=== PATIENT | male | born 1955 | race African-American/Black ===

== ENCOUNTER 2018-09-05 07:14 | Observation (INO) | payer MEDICAID ==
[2018-09-05] MEDS ORDERED: EPINEPHRINE INJ/PF 1 MG/1 ML AMPULE IM ONE (07:40)
[2018-09-05] MEDS ORDERED: METHYLPREDNISOLONE INJ 125 MG/2 ML SDV IV ONE (07:41)
[2018-09-05] MEDS ORDERED: FAMOTIDINE INJ/PF 20 MG/2 ML SDV IV ONE ×2 (07:41→08:23)
[2018-09-05] MEDS ORDERED: DIPHENHYDRAMINE HCL 50 MG/ML VIAL IV ONE (07:41)
--- NOTE | 2018-09-05 07:53 | ER Document Report ---
ED General - General Chief Complaint: Swelling of Tongue Stated Complaint: TONGUE SWELLING Time Seen by Provider: 09/05/18 07:31 Primary Care Provider: TERRY HERNANDEZ MD [Primary Care Provider] - Follow up as needed TRAVEL OUTSIDE OF THE [place] IN LAST 30 DAYS: No - HPI Notes: Patient is a 63-year-old male that presents to the emergency department for chief complaint of tongue and throat swelling. Patient reports onset of throat swelling as well as tongue swelling around 2:58 AM this morning. He states it has progressively gotten worse. He now states he is having a difficult time swallowing his saliva and is beginning to feel short of breath. He denies history of angioedema in the past. He states he choked on a pair yesterday which may have been the cause. He is currently taking lisinopril and has been on it for the last few years. He denies any family history of angioedema in the past. Patient denies any known allergies. Past Medical History: Hypertension Past Surgical History: Negative Social History: Occasional alcohol use, occasional tobacco use, denies drug use Family History: Reviewed and noncontributory for presenting illness Allergies: Reviewed, see documented allergy list. REVIEW OF SYSTEMS: CONSTITUTIONAL : No fever No chills No diaphoresis No recent illness EENT: Tongue and throat swelling No vision changes No congestion No sore throat CARDIOVASCULAR: No chest pain No palpitations RESPIRATORY: No shortness of breath No cough No difficulty breathing GASTROINTESTINAL: No abdominal pain No nausea No vomiting No diarrhea GENITOURINARY: No dysuria No hematuria No difficulty urinating MUSCULOSKELETAL: No back pain No leg pain No arm pain SKIN: No rashes No lesions LYMPHATIC: No swollen, enlarged glands. NEUROLOGICAL: No lightheadedness No headache No weakness No paresthesias PSYCHIATRIC: No anxiety No depression PHYSICAL EXAMINATION: Vital signs reviewed, nursing noted reviewed. GENERAL: Well-appearing, well-nourished and in no acute distress. HEAD: Atraumatic, normocephalic. EYES: Eyes appear normal, extraocular movements intact, sclera anicteric, conjunctiva are normal. ENT: nares patent, severe amount of lingual and oral pharyngeal edema, Chance [place] 4, garbled speech, no tongue protrusion, moist mucous membranes. NECK: Normal range of motion, supple without lymphadenopathy LUNGS: No stridor, breath sounds clear to auscultation bilaterally and equal. No wheezes rales or rhonchi. HEART: Regular rate and rhythm without murmurs ABDOMEN: Soft, nontender, normoactive bowel sounds. No rebound, guarding, or rigidity. No masses appreciated. EXTREMITIES: Nontender, good range of motion, no pitting or edema. NEUROLOGICAL: No focal neurological deficits. Moves all extremities spontaneously Motor and sensory grossly intact on exam. PSYCH: Normal mood, normal affect. SKIN: Warm, Dry, normal turgor, no rashes or lesions noted on exposed skin - Related Data Allergies/Adverse Reactions: No Known Allergies Allergy (Unverified 12/20/12 10:53) Past Medical History - Social History Smoking Status: Never Smoker Family History: None, Reviewed & Not Pertinent - Past Medical History Cardiac Medical History: Reports: Hx Hypertension - Immunizations Immunizations up to date: No Hx Diphtheria, Pertussis, Tetanus Vaccination: Yes Physical Exam - Vital signs Vitals: Temp Pulse Resp BP Pulse Ox 98 F 87 16 176/90 H 97 09/05/18 07:18 09/05/18 07:18 09/05/18 07:18 09/05/18 07:18 09/05/18 07:18 Course - Re-evaluation Re-evalutation: 09/05/18 07:53 Vitals reviewed. Nursing notes reviewed. Patient has a severe amount of oropharyngeal angioedema likely secondary to his lisinopril. Because of the amount of swelling in his oropharynx I have contacted Dr. Wilkins, general surgery, and Dr. Fischer, anesthesiologist, to help secure patient's airway with intubation and possible tracheostomy. Patient has been ordered Pepcid, Solu-Medrol, Benadryl and IM epinephrine to help with his oropharyngeal edema. There is no family history and he has never had any angioedema previously to suggest familial angioedema as a cause. 09/05/18 08:15 Patient was evaluated at bedside by Dr. Wilkins and Dr. Fischer. Anesthesia will take patient to OR holding and administer C1 esterase and FFP prior to intubating. Patient will be admitted to the ICU, care discussed with Dr. Petersen who accepts admission. - Vital Signs Vital signs: Temp Pulse Resp BP Pulse Ox 98 F 87 15 146/89 H 100 09/05/18 07:18 09/05/18 07:18 09/05/18 08:00 09/05/18 07:47 09/05/18 08:00 - Laboratory Result Diagrams: 09/05/18 07:30 09/05/18 07:30 Critical Care Note - Critical Care Note Total time excluding time spent on procedures (mins): 35 Comments: Critical care time 35 exclusive from separate billable procedures for a patient requiring complex medical decision making, and high potential for clinical deterioration. Time spent obtaining history from patient or surrogate, di scussions with consultants, development of treatment plan with patient or surrogate, evaluation of patient's response to treatment, examination of patient, ordering and performing treatments and interventions, ordering and review of laboratory studies, re-evaluation of patient's condition, ordering and review of radiographic studies and review of old charts Discharge - Discharge Clinical Impression: Angioedema Qualifiers: Encounter type: initial encounter Qualified Code(s): T78.3XXA - Angioneurotic edema, initial encounter Condition: Stable Disposition: ADMITTED INPATIENT Admitting Provider: Nicola (Hospitalist) Unit Admitted: ICU Referrals: TERRY HERNANDEZ MD [Primary Care Provider] - Follow up as needed
[2018-09-05] MEDS ORDERED: DEXAMETHASONE SOD PHOS INJ 10 MG/1 ML VIAL ONE (08:22)
[2018-09-05] MEDS ORDERED: TRANEXAMIC ACID INJ/PF 1,000 MG/10 ML SDV IV ONE (08:22)
[2018-09-05 08:25] LABS: ABSOLUTE EOSINOPHILS # (AUTO) 0.1 10^3/uL (0.0-0.6); ABSOLUTE MONOCYTES (AUTO) 0.6 10^3/uL (0.1-1.4); ABSOLUTE NEUT (AUTO) 4.8 10^3/uL (1.7-8.2); BASOPHILS % (AUTO) 0.6 % (0-2); EOSINOPHILS % (AUTO) 1.4 % (0-6); HEMATOCRIT 43.3 % (37.9-51.0); HEMOGLOBIN 13.5 g/dL (13.5-17.0); LYMPHOCYTES % (AUTO) 34.8 % (13-45); MEAN CORPUSCULAR HEMOGLOBIN 20.8 pg (27.0-33.4); MEAN CORPUSCULAR HGB CONC 31.3 g/dL (32.0-36.0); MEAN CORPUSCULAR VOLUME 66 fl (80-97); MONOCYTES % (AUTO) 6.5 % (3-13); PLATELET COUNT 320 10^3/uL (150-450); RED BLOOD COUNT 6.51 10^6/uL (4.35-5.55); RED CELL DISTRIBUTION WIDTH 16.2 % (11.5-14.0); SEGMENTED NEUTROPHILS % (AUTO) 56.7 % (42-78); TOTAL CELLS COUNTED % (AUTO) 100 %; WHITE BLOOD COUNT 8.5 10^3/uL (4.0-10.5)
[2018-09-05 08:29] LABS: INTERNATIONAL RATION (INR) 0.94; PROTHROMBIN TIME 13.1 SEC (11.4-15.4)
[2018-09-05 08:30] LABS: PARTIAL THROMBOPLASTIN TIME 34.2 SEC (23.5-35.8)
[2018-09-05 08:50] LABS: ANION GAP 9 (5-19); BLOOD UREA NITROGEN 12 mg/dL (7-20); CALCIUM 9.4 mg/dL (8.4-10.2); CARBON DIOXIDE 29 mmol/L (22-30); CHLORIDE 99 mmol/L (98-107); GLUCOSE 111 mg/dL (75-110); POTASSIUM 3.8 mmol/L (3.6-5.0); SODIUM 137.1 mmol/L (137-145)
[2018-09-05] MEDS ORDERED: [UNRECOGNIZED DRUG - OTHER] IV ONE ×2 (09:00)
[2018-09-05] MEDS ORDERED: DISPOSABLE IV ONE ×2 (09:00)
[2018-09-05] MEDS ORDERED: C1 ESTERASE INHIBITOR IV ONE ×2 (09:00)
[2018-09-05] MEDS ORDERED: ONDANSETRON 4 MG TAB.RAPDIS PO PRN (12:44)
[2018-09-05] MEDS ORDERED: OXYCODONE-ACETAMINOPHEN 5-325 MG TABLET PO PRN (12:44)
[2018-09-05] MEDS ORDERED: IPRATROPIUM/ALBUTEROL 0.5-2.5 MG/3 ML AMPUL NEB PRN (12:44)
[2018-09-05] MEDS ORDERED: PROMETHAZINE HCL INJ 25 MG/1 ML VIAL IV PRN (12:44)
[2018-09-05] MEDS ORDERED: NORMAL SALINE 1000 ML 1,000 ML IV PRN (12:44)
[2018-09-05] MEDS ORDERED: ACETAMINOPHEN 325 MG TABLET PO PRN (12:44)
[2018-09-05] MEDS ORDERED: DIPHENHYDRAMINE HCL 25 MG CAPSULE PO PRN (14:48)
--- NOTE | 2018-09-05 14:48 | PDOC H&P ---
History of Present Illness Admission Date/PCP: 09/05/18 13:44 TERRY HERNANDEZ MD History of Present Illness: MICHELLE JAFFE is a 63 year old male past medical history of hypertension, bipolar and anxiety not currently being treated for, presented to ED complaining of tongue and throat swelling. Initially he noticed that his tongue was swollen around 3 AM last morning which progressively got worse to the point that he was having clearing his oral secretions, started to feel short of breath. He has been taking lisinopril for a year usually takes it around 8 AM. Took his dosage today. Vitals within normal limits in ED. Anesthesia was called for possible intubation. Patient received 1 dose of epinephrine, diphenhydramine, Decadron and C1 esterase significant improvement of his symptoms. He was then transferred to minor surgeries by anesthesia who monitored him until 11 AM in case he needed to be intubated. I was called by anesthesia that he did not needed to be intubated and he could be transferred to either a IMCU or ICU as appropriate. On my encounter patient is comfortably resting in bed, on room air, saturating 98%, vitals within normal limits, tongue swelling has resolved, and is alert and cooperative with physical examination does not seem to be in any type of distress. Denies having any reactions to lisinopril any family or personal history of angioedema. Denies any fever, chills, nausea, vomiting, diarrhea, chest pain, constipation or any urinary symptoms. Past Medical History Cardiac Medical History: Reports: Hypertension Psychiatric Medical History: Reports: Depression Social History Smoking Status: Current Some Day Smoker Frequency of Alcohol Use: Occasional Hx Recreational Drug Use: No Drugs: None Hx Prescription Drug Abuse: No Family History Family History: None, Reviewed & Not Pertinent Parental Family History Reviewed: Yes Children Family History Reviewed: Yes Sibling(s) Family History Reviewed.: Yes Medication/Allergy Home Medications: Lisinopril/Hydrochlorothiazide [Lisinopril-Hctz 20-12.5 mg Tab] 1 each PO DAILY 09/05/18 Trazodone HCl [Desyrel 50 mg Tablet] 50 mg PO HSP PRN 09/05/18 Allergies/Adverse Reactions: lisinopril Allergy (Unverified 09/05/18 12:29) Swelling of tongue Review of Systems Review of Systems: as per hpi Physical Exam Vital Signs: Temp Pulse Resp BP Pulse Ox 98 F 99 16 146/89 H 94 05/10/19 07:18 09/05/18 14:24 09/05/18 14:24 09/05/18 07:47 09/05/18 14:24 Intake & Output 09/04/18 09/05/18 09/06/18 06:59 06:59 06:59 Weight 87.9 kg General appearance: PRESENT: no acute distress, well-developed, well-nourished Head exam: PRESENT: atraumatic, normocephalic Eye exam: PRESENT: conjunctiva pink, EOMI, PERRLA. ABSENT: scleral icterus Ear exam: PRESENT: normal external ear exam Mouth exam: PRESENT: moist, tongue midline Neck exam: ABSENT: carotid bruit, JVD, lymphadenopathy, thyromegaly Respiratory exam: PRESENT: clear to auscultation harpreet. ABSENT: rales, rhonchi, wheezes Cardiovascular exam: PRESENT: RRR. ABSENT: diastolic murmur, rubs, systolic murmur Pulses: PRESENT: normal dorsalis pedis pul Vascular exam: PRESENT: normal capillary refill GI/Abdominal exam: PRESENT: normal bowel sounds, soft. ABSENT: distended, guarding, mass, organolmegaly, rebound, tenderness Rectal exam: PRESENT: deferred Extremities exam: PRESENT: full ROM. ABSENT: calf tenderness, clubbing, pedal edema Neurological exam: PRESENT: alert, awake, oriented to person, oriented to place, oriented to time, oriented to situation, CN II-XII grossly intact. ABSENT: motor sensory deficit Psychiatric exam: PRESENT: appropriate affect, normal mood. ABSENT: homicidal ideation, suicidal ideation Skin exam: PRESENT: dry, intact, warm. ABSENT: cyanosis, rash Results Laboratory Results: 09/05/18 07:30 09/05/18 07:30 09/05/18 09/05/18 09/05/18 07:30 07:30 08:00 WBC 8.5 RBC 6.51 H Hgb 13.5 Hct 43.3 MCV 66 L MCH 20.8 L MCHC 31.3 L RDW 16.2 H Plt Count 320 Seg Neutrophils % 56.7 Lymphocytes % 34.8 Monocytes % 6.5 Eosinophils % 1.4 Basophils % 0.6 Absolute Neutrophils 4.8 Absolute Lymphocytes 3.0 Absolute Monocytes 0.6 Absolute Eosinophils 0.1 Absolute Basophils 0.0 Sodium 137.1 Potassium 3.8 Chloride 99 Carbon Dioxide 29 Anion Gap 9 BUN 12 Creatinine 1.17 Est GFR ( Amer) > 60 Est GFR (Non-Af Amer) > 60 Glucose 111 H Calcium 9.4 Blood Type B POSITIVE Assessment and Plan - Diagnosis (1) Angioedema Qualifiers: Encounter type: initial encounter Qualified Code(s): T78.3XXA - Angioneurotic edema, initial encounter Is this a current diagnosis for this admission?: Yes Plan: Likely due to lisinopril. DC lisinopril. Avoid in the future. Received C1 esterase, Decadron, Benadryl, epinephrine in ED. Admit to to IMCU for observation. Start on IV steroids and diphenhydramine. (2) Hypertension Is this a current diagnosis for this admission?: No Plan: Avoid lisinopril. Will start on hydrochlorothiazide. Monitor vitals. Adjust dose as needed. Outpatient PCP follow-up. Check lipid panel and hemoglobin A1c. (3) Tobacco abuse Is this a current diagnosis for this admission?: No Plan: Counseled on quitting. NicoDerm patch. (4) Anxiety Is this a current diagnosis for this admission?: No Plan: PRN benzos.
[2018-09-05] MEDS: HEPARIN SOD (PORCINE) 5,000 UNIT/ML 1 ML SYRINGE SUBCUT SCH ×2 (15:15→21:15)
[2018-09-05] MEDS: HYDROCHLOROTHIAZIDE 25 MG TABLET PO SCH (15:22)
[2018-09-05 16:04] LABS: CHOLESTEROL 160.02 mg/dL (0-200); TRIGLYCERIDES 128 mg/dL (<150)
[2018-09-05 16:16] LABS: DIRECT LDL 116 mg/dL (<100)
[2018-09-05] MEDS: FAMOTIDINE 20 MG TABLET PO SCH (21:16)
[2018-09-05] MEDS: METHYLPREDNISOLONE INJ 40 MG/1 ML SDV IV SCH (21:16)
[2018-09-05] MEDS ORDERED: DIPHENHYDRAMINE HCL 25 MG CAPSULE PO SCH (22:00)
[2018-09-06 04:49] LABS: ABSOLUTE LYMPHOCYTES (AUTO) 1.4 10^3/uL (0.5-4.7); ABSOLUTE MONOCYTES (AUTO) 0.6 10^3/uL (0.1-1.4); ABSOLUTE NEUT (AUTO) 11.4 10^3/uL (1.7-8.2); BASOPHILS % (AUTO) 0.3 % (0-2); HEMATOCRIT 40.1 % (37.9-51.0); HEMOGLOBIN 12.3 g/dL (13.5-17.0); LYMPHOCYTES % (AUTO) 10.1 % (13-45); MEAN CORPUSCULAR HEMOGLOBIN 20.6 pg (27.0-33.4); MEAN CORPUSCULAR HGB CONC 30.8 g/dL (32.0-36.0); MEAN CORPUSCULAR VOLUME 67 fl (80-97); MONOCYTES % (AUTO) 4.7 % (3-13); PLATELET COUNT 293 10^3/uL (150-450); RED BLOOD COUNT 5.99 10^6/uL (4.35-5.55); RED CELL DISTRIBUTION WIDTH 16.5 % (11.5-14.0); SEGMENTED NEUTROPHILS % (AUTO) 84.9 % (42-78); TOTAL CELLS COUNTED % (AUTO) 100 %; WHITE BLOOD COUNT 13.4 10^3/uL (4.0-10.5)
[2018-09-06 05:07] LABS: ANION GAP 10 (5-19); BLOOD UREA NITROGEN 16 mg/dL (7-20); CALCIUM 9.2 mg/dL (8.4-10.2); CARBON DIOXIDE 25 mmol/L (22-30); CHLORIDE 102 mmol/L (98-107); GLUCOSE 218 mg/dL (75-110); POTASSIUM 4.4 mmol/L (3.6-5.0); SODIUM 136.8 mmol/L (137-145)
[2018-09-06] MEDS: HEPARIN SOD (PORCINE) 5,000 UNIT/ML 1 ML SYRINGE SUBCUT SCH (05:44)
[2018-09-06 08:32] VITALS: BP 140/76
[2018-09-06] MEDS: HYDROCHLOROTHIAZIDE 25 MG TABLET PO SCH (09:53)
[2018-09-06] MEDS: METHYLPREDNISOLONE INJ 40 MG/1 ML SDV IV SCH (09:54)
[2018-09-06] MEDS: FAMOTIDINE 20 MG TABLET PO SCH (09:54)
[2018-09-06] MEDS ORDERED: DOCUSATE SODIUM 100 MG CAPSULE PO SCH (10:00)
[2018-09-06] MEDS ORDERED: AMLODIPINE BESYLATE 5 MG TABLET PO SCH (10:00)
--- NOTE | 2018-09-06 15:41 | PDOC DISCHARGE SUMMARY ---
General - Admit/Disc Date/PCP Admission Date/Primary Care Provider: 09/05/18 13:44 TERRY HERNANDEZ MD Discharge Date: 09/06/18 - Discharge Diagnosis (1) Angioedema Is this a current diagnosis for this admission?: Yes (2) Hypertension Is this a current diagnosis for this admission?: Yes - Additional Information Discharge Diet: As Tolerated Discharge Activity: Activity As Tolerated, Balance Activity w/Rest Prescriptions: Amlodipine Besylate [Norvasc 5 mg Tablet] 5 mg PO DAILY #30 tablet Hydrochlorothiazide [Hydrodiuril 25 mg Tablet] 25 mg PO QAM #30 tablet Prednisone [Deltasone 10 mg Tablet] 10 mg PO BID 5 Days #10 tablet Home Medications: Trazodone HCl [Desyrel 50 mg Tablet] 50 mg PO HSP PRN 09/05/18 Amlodipine Besylate [Norvasc 5 mg Tablet] 5 mg PO DAILY #30 tablet 09/06/18 Hydrochlorothiazide [Hydrodiuril 25 mg Tablet] 25 mg PO QAM #30 tablet 09/06/18 Prednisone [Deltasone 10 mg Tablet] 10 mg PO BID 5 Days #10 tablet 09/06/18 History of Present Illness History of Present Illness: Admitting hospitalist's H&P: MICHELLE JAFFE is a 63 year old male past medical history of hypertension, bipol ar and anxiety not currently being treated for, presented to ED complaining of acute tongue and throat swelling. Initially he noticed that his tongue was swollen around 3 AM last morning which progressively got worse to the point that he was having clearing his oral secretions, started to feel short of breath. He has been taking lisinopril for a year usually. Hospital Course Hospital Course: Patient was admitted for ACEi-induced angioedema. He was given epinephrine, IV steroids, diphenhydramine and C1 esterase inhibitor in the ER. He was then transferred to minor surgery by anesthesia who monitored him until 11 AM in case he needed to be intubated. His symtpoms and swelling completely resolved while in the PACU and he did not require intubation. He was observed overnight with no acute issues. He is back to his aaseline. His lisinopril was switched to amlodipine. His HCTZ will be continued. Physical Exam Vital Signs: Temp Pulse Resp BP Pulse Ox 97.9 F 81 15 140/76 H 100 09/06/18 10:40 09/06/18 10:40 09/06/18 10:40 09/06/18 10:40 09/06/18 10:40 Intake & Output 09/05/18 09/06/18 09/07/18 06:59 06:59 06:59 Intake Total 100 Balance 100 Weight 197 lb 8.547 oz General appearance: PRESENT: no acute distress, well-developed, well-nourished Head exam: PRESENT: atraumatic, normocephalic Eye exam: PRESENT: conjunctiva pink, EOMI, PERRLA. ABSENT: scleral icterus Ear exam: PRESENT: normal external ear exam Mouth exam: PRESENT: moist, tongue midline Neck exam: ABSENT: carotid bruit, JVD, lymphadenopathy, thyromegaly Respiratory exam: PRESENT: clear to auscultation harpreet. ABSENT: rales, rhonchi, wheezes Cardiovascular exam: PRESENT: RRR. ABSENT: diastolic murmur, rubs, systolic murmur Pulses: PRESENT: normal dorsalis pedis pul Vascular exam: PRESENT: normal capillary refill GI/Abdominal exam: PRESENT: normal bowel sounds, soft. ABSENT: distended, guarding, mass, organolmegaly, rebound, tenderness Rectal exam: PRESENT: deferred Neurological exam: PRESENT: alert, awake, oriented to person, oriented to place, oriented to time, oriented to situation, CN II-XII grossly intact. ABSENT: motor sensory deficit Results Laboratory Results: 09/06/18 04:25 09/06/18 04:25 09/05/18 09/05/18 09/06/18 07:30 08:00 04:25 WBC 13.4 H RBC 5.99 H Hgb 12.3 L Hct 40.1 MCV 67 L MCH 20.6 L MCHC 30.8 L RDW 16.5 H Plt Count 293 Seg Neutrophils % 84.9 H Lymphocytes % 10.1 L Monocytes % 4.7 Eosinophils % 0.0 Basophils % 0.3 Absolute Neutrophils 11.4 H Absolute Lymphocytes 1.4 Absolute Monocytes 0.6 Absolute Eosinophils 0.0 Absolute Basophils 0.0 Sodium Potassium Chloride Carbon Dioxide Anion Gap BUN Creatinine Est GFR ( Amer) Est GFR (Non-Af Amer) Glucose Calcium Triglycerides 128 Cholesterol 160.02 LDL Cholesterol Direct 116 H VLDL Cholesterol 26.0 HDL Cholesterol 28 L Blood Type B POSITIVE 09/06/18 04:25 WBC RBC Hgb Hct MCV MCH MCHC RDW Plt Count Seg Neutrophils % Lymphocytes % Monocytes % Eosinophils % Basophils % Absolute Neutrophils Absolute Lymphocytes Absolute Monocytes Absolute Eosinophils Absolute Basophils Sodium 136.8 L Potassium 4.4 Chloride 102 Carbon Dioxide 25 Anion Gap 10 BUN 16 Creatinine 1.12 Est GFR ( Amer) > 60 Est GFR (Non-Af Amer) > 60 Glucose 218 H Calcium 9.2 Triglycerides Cholesterol LDL Cholesterol Direct VLDL Cholesterol HDL Cholesterol Blood Type Qualifiers - * PATIENT BEING DISCHARGED WITH ANY OF THE FOLLOWING DIAGNOSIS: No Acute Heart Failure Is this a Heart Failure Patient?: No
== END 2018-09-06 11:09 | disposition home or self-care (01) ==
LOC: ER 07:14 → 3N 12:09 → ER 13:44 → 3N 13:44
PROVIDERS: ADMIT Internal Medicine; ATTEND Internal Medicine
DX: T78.3XXA Angioneurotic edema, initial encounter (principal); I10 Essential (primary) hypertension; F41.9 Anxiety disorder, unspecified; F17.200 Nicotine dependence, unspecified, uncomplicated; Z79.899 Other long term (current) drug therapy
CPT/HCPCS: 99291; 96372; 96374; 96375; 86900; 86901; 36415 ×2; 36430; 82962; 85025 ×2; 85610; 85730; 80048 ×2; 83036; 80061; G0378 ×3; P9017; J1644; J3490 ×8; J1200; J0171; J2920 ×2; J2930; S0028; J1100; J0596

== ENCOUNTER 2019-06-29 13:31 | Emergency (ER) | payer MEDICAID ==
[2019-06-29] MEDS ORDERED: PREDNISONE 20 MG TABLET PO ONE (14:54)
[2019-06-29] MEDS ORDERED: OXYCODONE-ACETAMINOPHEN 5-325 MG TABLET PO ONE (14:55)
--- NOTE | 2019-06-29 15:34 | RADIOLOGY REPORT (SQ) ---
EXAM DESCRIPTION: ANKLE RIGHT COMPLETE COMPLETED DATE/TIME: 06/29/2019 3:14 pm REASON FOR STUDY: ankle pain COMPARISON: AP, oblique, lateral views of the right ankle from 04/11/2013 NUMBER OF VIEWS: Three views. TECHNIQUE: AP, lateral, and oblique radiographic images acquired of the right ankle. LIMITATIONS: None. FINDINGS: MINERALIZATION: Normal. BONES: No acute fracture or dislocation. The ankle mortise and talar dome are intact. JOINTS: No effusions. SOFT TISSUES: No soft tissue swelling. OTHER: No other finding. IMPRESSION: No acute osseous abnormality of the right ankle. TECHNICAL DOCUMENTATION: JOB ID: [id number] [employer]- All Rights Reserved Reading location - IP/workstation name: [email or web address]
--- NOTE | 2019-06-29 15:45 | ER Document Report ---
HPI - HPI Time Seen by Provider: 06/29/19 14:33 Pain Level: 5 Notes: Patient is a 64-year-old male presenting to the emergency department chief complaint of right ankle pain. Patient reports pain started 3 days ago. He denies any injury to the area. He denies history of gout but states that he was seen here with a similar issue a few years ago and was started on prednisone which helped his symptoms. Patient denies taking any medications for this at home prior to arrival. - CONSTITUTIONAL Constitutional: DENIES: Fever, Chills - REPRODUCTIVE Reproductive: DENIES: : Past Medical History - General Information source: Patient - Social History Smoking Status: Current Some Day Smoker Family History: None, Reviewed & Not Pertinent Patient has suicidal ideation: No Patient has homicidal ideation: No - Past Medical History Cardiac Medical History: Reports: Hx Hypertension Renal/ Medical History: Denies: Hx Peritoneal Dialysis Psychiatric Medical History: Reports: Hx Depression Surgical Hx: Negative - Immunizations Immunizations up to date: No Hx Diphtheria, Pertussis, Tetanus Vaccination: Yes Vertical Provider Document - CONSTITUTIONAL Notes: PHYSICAL EXAMINATION: GENERAL: Well-appearing, well-nourished and in no acute distress. HEAD: Atraumatic, normocephalic. EYES: Pupils equal round extraocular movements intact, conjunctiva are normal. ENT: Nares patent NECK: Normal range of motion LUNGS: No respiratory distress Musculoskeletal: Limited range of motion to right ankle, no obvious erythema, swelling or deformity. Cap refill less than 3 seconds. Tenderness with light touch on the skin. Strong dorsalis pedis pulse. NEUROLOGICAL: Normal speech, normal gait. PSYCH: Normal mood, normal affect. SKIN: Warm, Dry, normal turgor, no rashes or lesions noted. - INFECTION CONTROL TRAVEL OUTSIDE OF THE [place] IN LAST 30 DAYS: No Course - Re-evaluation Re-evalutation: X-ray was negative for any acute fracture dislocation. No obvious physical exam findings. Possibly gout. Patient does report he has had a similar problem in the past and they gave him pain medication and prednisone which helped. Patient will be sent home with a sixpack dispense of Vicodin and will be started on a prednisone course. Patient verbalized understanding and agreement with discharge plan as well as ED return precautions. - Vital Signs Vital signs: Temp Pulse Resp BP Pulse Ox 97.7 F 74 20 158/77 H 97 06/29/19 13:46 06/29/19 13:46 06/29/19 13:46 06/29/19 13:46 06/29/19 13:46 Discharge - Discharge Clinical Impression: Ankle pain Qualifiers: Chronicity: acute Laterality: unspecified laterality Qualified Code(s): M25.579 - Pain in unspecified ankle and joints of unspecified foot Condition: Stable Disposition: HOME, SELF-CARE Additional Instructions: Please take medications as prescribed. Please also take ibuprofen 600 mg every 6 hours for the next 2 days as this should help with your ankle pain. Follow-up with your primary care provider. Prescriptions: Prednisone [Deltasone 20 mg Tablet] 3 tab PO DAILY 5 Days #15 tablet Referrals: TERRY HERNANDEZ MD [Primary Care Provider] - Follow up as needed
[2019-06-29] MEDS ORDERED: HYDROCODONE/ACETAMINOPHEN 5-325 MG (6 TAB/ER DISP) PO PRN (16:09)
[2019-06-29 16:11] VITALS: BP 151/87
== END 2019-06-29 16:19 | disposition home or self-care (01) ==
LOC: ER 13:31
DX: M25.571 Pain in right ankle and joints of right foot (principal); F17.200 Nicotine dependence, unspecified, uncomplicated; I10 Essential (primary) hypertension
CPT/HCPCS: 99283; 73610; J7512

== ENCOUNTER → 2020-01-11 | Outpatient (CLI) | payer MEDICAID ==
[2020-01-11 11:44] LABS: HEMATOCRIT 40.9 % (37.9-51.0); HEMOGLOBIN 13.1 g/dL (13.5-17.0); MEAN CORPUSCULAR HEMOGLOBIN 21.2 pg (27.0-33.4); MEAN CORPUSCULAR HGB CONC 31.9 g/dL (32.0-36.0); MEAN CORPUSCULAR VOLUME 67 fl (80-97); PLATELET COUNT 302 10^3/uL (150-450); RED BLOOD COUNT 6.15 10^6/uL (4.35-5.55); RED CELL DISTRIBUTION WIDTH 16.2 % (11.5-14.0); WHITE BLOOD COUNT 7.1 10^3/uL (4.0-10.5)
[2020-01-11 11:45] LABS: APPEARANCE,URINE CLEAR; BILIRUBIN,URINE NEGATIVE (NEGATIVE); COLOR,URINE YELLOW; GLUCOSE, URINE NEGATIVE (NEGATIVE); KETONES,URINE NEGATIVE (NEGATIVE); LEUKOCYTE ESTERASE,URINE NEGATIVE (NEGATIVE); NITRITE,URINE NEGATIVE (NEGATIVE); PROTEIN,URINE NEGATIVE (NEGATIVE); URINE SPECIFIC GRAVITY 1.019; UROBILINOGEN,URINE NEGATIVE mg/dL (<2.0)
[2020-01-11 12:10] LABS: ALBUMIN 4.2 g/dL (3.5-5.0); ANION GAP 8 (5-19); BLOOD UREA NITROGEN 15 mg/dL (7-20); CALCIUM 9.2 mg/dL (8.4-10.2); CARBON DIOXIDE 29 mmol/L (22-30); CHLORIDE 101 mmol/L (98-107); GLUCOSE 135 mg/dL (75-110); PHOSPHORUS 4.2 mg/dL (2.5-4.5); POTASSIUM 3.8 mmol/L (3.6-5.0)
== END ==
LOC: OD 10:37
PROVIDERS: ATTEND Physician Assistant Medical
DX: N18.2 Chronic kidney disease, stage 2 (mild) (principal)
CPT/HCPCS: 36415; 80069; 81001; 85027